=== PATIENT | female | born 1980 | race Two or more races ===

== ENCOUNTER 2018-12-01 12:00 | Inpatient (IN) | payer OTHER ==
[~2018-12-01] VITALS: Ht 165.1 cm; Wt 52.2 kg
[2018-12-04] MEDS ORDERED: DOCUSATE SODIU100 MG PO (09:54)
[2018-12-04] MEDS ORDERED: ULTRAM50 MG PO (09:55)
== END 2018-12-04 09:00 | disposition home or self-care (01) | DRG 743 ==
LOC: OB/GYN 12-03 05:15 → SURH 12-03 05:15 → O/R 12-03 05:15 → CIR.AMB 12-03 06:00 → O/R 12-03 07:00 → SURH 12-03 08:30 → EDSTATUS 12-03 12:00 → OB/GYN 12-03 13:16 → O/R 12-03 13:16 → CIR.AMB 12-04 09:00 → OB/GYN 12-04 13:35 → O/R 12-04 13:35
PROVIDERS: ADMIT Obstetrics & Gynecology
PROC: 0UT14ZZ Resection of Left Ovary, Percutaneous Endoscopic Approach (ICD-10-PCS; 2018-12-03)
PROC: 0UT74ZZ Resection of Bilateral Fallopian Tubes, Percutaneous Endoscopic Approach (ICD-10-PCS; principal; 2018-12-03 08:30)
DX: D27.1 Benign neoplasm of left ovary (principal)